=== PATIENT | female | born 1945 ===

== ENCOUNTER 2017-11-01 17:39 | Emergency (ER) | payer MEDICARE, OTHER ==
[2017-11-01 17:39] VITALS: BMI 42.5
[2017-11-01 17:46] VITALS: BP 138/78; PULSE 79; RESP 16; TEMP 98.3; O2SAT 100
--- NOTE | 2017-11-01 18:03 | ED PDOC ---
Lower Extremity Pain/Injury Time Seen by Provider: 11/01/17 17:49 Chief Complaint (Nursing): Lower Extremity Problem/Injury Chief Complaint (Provider): Right Foot Pain History Per: Patient History/Exam Limitations: no limitations Onset/Duration Of Symptoms: Days (x5) Current Symptoms Are (Timing): Still Present Additional Complaint(s): 72 year old female presents to the ED for evaluation of her right foot. She states five days ago a metal knick-knack fell on her foot, causing persistent pain and swelling unresolved with Tramadol last taken this morning around 11: 00. Denies other injury. PMD: Bruce Gómez Past Medical History Reviewed: Historical Data, Nursing Documentation, Vital Signs Vital Signs: Last Vital Signs Temp 98.3 F 11/01/17 17:43 Pulse 79 11/01/17 17:43 Resp 16 11/01/17 17:43 BP 138/78 11/01/17 17:43 Pulse Ox 100 11/01/17 17:43 - Medical History PMH: Asthma, Diabetes - Surgical History Surgical History: Back Surgery (x4), Hernia Repair (x2), (x1) Other surgeries: left knee replacement - Family History Family History: States: Unknown Family Hx - Social History Current smoker - smoking cessation education provided: Yes (3 cigarettes daily) Alcohol: None Drugs: Denies - Home Medications Home Medications: Ambulatory Orders Medication Instructions Recorded Acetaminophen [Acetaminophen 8 650 mg PO Q8 #24 tablet.er 11/01/17 Hour] - Allergies Allergies/Adverse Reactions: Allergies Allergy/AdvReac Type Severity Reaction Status Date / Time Penicillins Allergy RASH Verified 11/01/17 17:43 Review of Systems ROS Statement: Except As Marked, All Systems Reviewed And Found Negative Constitutional: Negative for: Other (other injury) Musculoskeletal: Positive for: Foot Pain (right, with swelling) Physical Exam - Reviewed Nursing Documentation Reviewed: Yes Vital Signs Reviewed: Yes - Physical Exam Comments: GENERAL APPEARANCE: Patient is awake, alert, oriented x 3, in no acute distress. SKIN: Warm, dry; (-) cyanosis. RIGHT LOWER EXTREMITY: Ecchymosis of 2nd and 3rd toes (+) swelling. Effusion to dorsum of forefoot (+) tenderness, (-) erythema, (-) skin break. Full ROM ankle. Sensation and capillary refill in tact. HEART AND CARDIOVASCULAR: (-) irregularity; (-) murmur, (-) gallop. CHEST AND RESPIRATORY: (-) rales, (-) rhonchi, (-) wheezes; breath sounds equal. NEURO AND PSYCH: Mental status as above. - ECG O2 Sat by Pulse Oximetry: 100 (RA) Pulse Ox Interpretation: Normal Medical Decision Making Medical Decision Making: Time: 1749 Initial Impression: foot contusion, r/o fracture Initial Plan: --Right foot XR --Podiatry evaluation --Patient declined pain medication in ED [address] Lewis Caraballo at bedside. 1914 Foot XR: no fracture, no dislocation, as read by PA Patient advised that official radiology read of XR is still pending and will call the patient if there is any discrepancy within 24 hours. 1944 Per podiatry evaluation, patient to be treated with marty bandage and surgical shoe. Patient to follow up with podiatry clinic. Surgical shoe and marty bandage ordered. Marty bandage applied by ED staff. Placement and application verified by Shan MOREIRA. NV intact after placement of marty bandage and surgical shoe. On re-evaluation, patient reports no additional complaints. Patient remains AAOx3, in no acute distress. Neck is supple, lungs CTA, cardiac RRR, neuro exam shows no focal findings. VSS, stable for discharge. RICE encouraged. Diagnostic results d/w the patient in great detail. Dx of foot contusion, acute foot pain and swelling d/w the patient. Based on history, exam and diagnostic results plan will be for discharge and follow up with podiatry clinic. Advised to follow up with primary care physician/clinic in 1-2 days without fail. Advised to take medication as prescribed. Return to the emergency room at any time for any new or worsening symptoms. Patient states she fully agrees with and understands discharge instructions. States that she agrees with the plan and disposition. Verbalized and repeated discharge instructions and plan. I have given the patient opportunity to ask any additional questions. Scribe Attestation: Documented by Ashia De La Vega, acting as a scribe for Krystyna Torrez PA-C. Provider Scribe Attestation: All medical record entries made by the Scribe were at my direction and personally dictated by me. I have reviewed the chart and agree that the record accurately reflects my personal performance of the history, physical exam, medical decision making, and the department course for this patient. I have also personally directed, reviewed, and agree with the discharge instructions and disposition. Disposition - Clinical Impression Clinical Impression: Foot contusion, Foot swelling, Effusion of foot - Patient ED Disposition Is Patient to be Admitted: No Counseled Patient/Family Regarding: Studies Performed, Diagnosis, Need For Followup, Rx Given - Disposition Referrals: Podiatry Clinic [Outside] Disposition: Routine/Home Disposition Time: 19:48 Condition: STABLE Additional Instructions: FOLLOW UP WITH PMD/REFERRED PROVIDER FOR FURTHER EVALUATION. RETURN TO ED WITH ANY NEW OR WORSENING SYMPTOMS. REST ICE ELEVATE Prescriptions: Acetaminophen [Acetaminophen 8 Hour] 650 mg PO Q8 #24 tablet.er Instructions: Contusion (DC) Forms: [employer] (Georgian) Print Language: PORTUGUESE - POA Present On Arrival: None
--- NOTE | 2017-11-01 22:45 | CP.PCM.CON ---
History of Present Illness - History of Present Illness History of Present Illness: Consult notes for attending Adolfo Salazar 72 y/o F patient with PMH of DM and bronchial asthma seen and evaluated at the bedside for pain in her right ankle. Patient states that 5 days ago while she was at home a heavy decoration felt on her Right foot. Patient states that she felt pain immediately. She states that the pain increased and now it's 7/10 on VAS scale. She states that she used tramal but it didn't help . patient states that she can't bear weight on her left foot. was sitting comfortably in bed and not in acute distress. Patient is AAO X 3. Patient denies any other pedal complaint. Patient denies any F/N/V/C or SOB recently. Review of Systems - Review of Systems Review of Systems: As per HPI Past Patient History - Past Social History Alcohol: None Drugs: Denies - PULMONARY Hx Asthma: Yes - ENDOCRINE/METABOLIC Hx Diabetes Mellitus Type 2: Yes - PSYCHIATRIC Hx Substance Use: No - SURGICAL HISTORY Hx Surgeries: Yes Hx Section: Yes (x1) Other/Comment: hernia repair x2 Meds Home Medications: Home Medication List Medication Instructions Recorded Confirmed Type Acetaminophen [Acetaminophen 8 650 mg PO Q8 #24 tablet.er 11/01/17 Rx Hour] Allergies/Adverse Reactions: Allergies Allergy/AdvReac Type Severity Reaction Status Date / Time Penicillins Allergy RASH Verified 11/01/17 17:43 Physical Exam - Constitutional Appears: Well, Non-toxic, No Acute Distress - Head Exam Head Exam: ATRAUMATIC, NORMOCEPHALIC - Extremities Exam Additional comments: ower extremity focused exam: Vasc: DP/PT 2/4 b/l. Cap refill < 3 sec in all digits. Temp gradient warm to cool. non pitting edema noted on the dorsum of the right midfoot. Neuro: Protective and gross sensation are intact. Derm: No open lesions, No clinical signs of active bacterial infection. Echymosis noted on the lateral aspect of the right foot and on the 2nd and 3rd digits Msk: Pain on palpating the dorsum of the right midfoot. No pain with ROM of all major joints of the foot. muscle [power intact 5/5 in all muscle groups. - Neurological Exam Neurological exam: Alert, Oriented x3 - Psychiatric Exam Psychiatric exam: Normal Affect, Normal Mood Results - Vital Signs Recent Vital Signs: Last Vital Signs Temp 98.3 F 11/01/17 17:43 Pulse 79 11/01/17 17:43 Resp 16 11/01/17 17:43 BP 138/78 11/01/17 17:43 Pulse Ox 100 11/01/17 19:55 Assessment & Plan - Assessment and Plan (Free Text) Assessment: 72 Y/O F patient evaluated for Right foot trauma and pain. Plan: Patient seen and evaluated in the ED. Plan discussed in details with attending Adolfo Salazar X-ray results reviewed and it shows no osseous deformity. Patient foot wrapped with sophie bandage. Patient instructed to use right surgical shoe for ambulation. Dispensed Surgical shoe for the patient. Patient instructed to use Tylenol for pain. Patient instructed to elevate her leg and apply icing. Patient expressed verbal understanding. Patient to F/U in podiatry clinic. - Date & Time Date: 11/01/17 Time: 22:48
--- NOTE | 2017-11-02 08:52 | RAD ---
PROCEDURE: Right Foot Radiographs. HISTORY: effusion/pain s/p object falling on foot COMPARISON: None. FINDINGS: BONES: No acute fracture. JOINTS: Mild degenerative changes. SOFT TISSUES: Mild soft tissue swelling around the ankle. OTHER FINDINGS: Foreshortening of the 4th metatarsal. Hammertoe deformities of the 2nd through 5th digits. Plantar calcaneal spur. IMPRESSION: No acute fracture.
== END 2017-11-01 20:14 | disposition home or self-care (01) ==
LOC: H.ER 17:39
DX: S90.31XA Contusion of right foot, initial encounter (principal); W22.8XXA Striking against or struck by other objects, initial encounter; Y92.89 Other specified places as the place of occurrence of the external cause; E11.9 Type 2 diabetes mellitus without complications; Z88.0 Allergy status to penicillin

== ENCOUNTER 2017-11-09 09:11 | Emergency (ER) | payer MEDICARE, OTHER ==
[2017-11-09 09:19] VITALS: BMI 32.1
--- NOTE | 2017-11-09 09:37 | ED PDOC ---
HPI: General Adult Time Seen by Provider: 11/09/17 09:26 History Per: Patient Onset/Duration Of Symptoms: Days (1) Additional Complaint(s): Referred from podiatry clinic for elevated BP. Pt has h/o HTN and has had headache and lightheadedness. Also c/o pain right shoulder, worse when raising arm. Denies numbness or weakness. Past Medical History Vital Signs: Last Vital Signs Temp 97.6 F 11/09/17 09:57 Pulse 64 11/09/17 09:57 Resp 18 11/09/17 09:57 BP 131/69 11/09/17 09:57 Pulse Ox 98 11/09/17 09:57 - Medical History PMH: Asthma, Diabetes, HTN - Surgical History Surgical History: Back Surgery (x4), Hernia Repair (x2), (x1) - Family History Family History: States: Unknown Family Hx - Home Medications Home Medications: Ambulatory Orders Medication Instructions Recorded Acetaminophen [Acetaminophen 8 650 mg PO Q8 #24 tablet.er 11/01/17 Hour] Naproxen [Naprosyn] 500 mg PO Q12H #20 tab 11/09/17 - Allergies Allergies/Adverse Reactions: Allergies Allergy/AdvReac Type Severity Reaction Status Date / Time Penicillins Allergy RASH Verified 11/01/17 17:43 Review of Systems ROS Statement: Except As Marked, All Systems Reviewed And Found Negative Musculoskeletal: Positive for: Shoulder Pain Neurological: Positive for: Headache. Negative for: Weakness, Numbness Physical Exam - Reviewed Nursing Documentation Reviewed: Yes Vital Signs Reviewed: Yes - Physical Exam Appears: Positive for: Non-toxic, No Acute Distress Head Exam: Positive for: ATRAUMATIC, NORMAL INSPECTION, NORMOCEPHALIC Skin: Positive for: Normal Color, Warm, DRY Eye Exam: Positive for: EOMI, Normal appearance, PERRL ENT: Positive for: Normal ENT Inspection Neck: Positive for: Normal, Painless ROM Cardiovascular/Chest: Positive for: Regular Rate, Rhythm Respiratory: Positive for: CNT, Normal Breath Sounds Gastrointestinal/Abdominal: Positive for: Normal Exam, Soft Back: Positive for: Normal Inspection Extremity: Positive for: Other (Pain right shoulder on raising right arm) Neurologic/Psych: Positive for: Alert, Oriented. Negative for: Motor/Sensory Deficits - ECG O2 Sat by Pulse Oximetry: 98 Disposition - Clinical Impression Clinical Impression: Calcific bursitis of shoulder - Patient ED Disposition Is Patient to be Admitted: No Counseled Patient/Family Regarding: Studies Performed, Diagnosis, Need For Followup, Rx Given - Disposition Referrals: [facility] [Outside] Disposition: Routine/Home Disposition Time: 10:53 Condition: FAIR Prescriptions: Naproxen [Naprosyn] 500 mg PO Q12H #20 tab Instructions: Shoulder Bursitis Forms: [facility] (Montenegrin) Print Language: BAHAMIAN
[2017-11-09 10:00] VITALS: TEMP 97.6
[2017-11-09 11:12] VITALS: BP 131/67; PULSE 79; RESP 19; O2SAT 99
--- NOTE | 2017-11-09 13:06 | RAD ---
Date of service: 11/09/2017 PROCEDURE: Radiographs of the Right Shoulder HISTORY: Pain. No history of recent/ related trauma provided COMPARISON: No prior. FINDINGS: BONES: Normal. No fracture. JOINTS: Preserved glenohumeral relationship, acromioclavicular degenerative change: Moderate. SOFT TISSUES: Normal. OTHER FINDINGS: Evidence of calcific tendinosis. IMPRESSION: No acute findings related to/accounting for the clinical presentation.
--- NOTE | 2017-11-09 14:20 | CARD ---
APPROVED REPORT Date of service: 11/09/2017 EKG Measurement Heart [id number] <Conclusion> Normal sinus rhythm Normal ECG
== END 2017-11-09 11:00 | disposition home or self-care (01) ==
LOC: H.ER 09:11
DX: M75.51 Bursitis of right shoulder (principal); I10 Essential (primary) hypertension; E11.9 Type 2 diabetes mellitus without complications; Z88.0 Allergy status to penicillin